=== PATIENT | male | born 1970 | race Caucasian/White ===

== ENCOUNTER → 2020-11-26 | Outpatient (CLI) | payer OTHER ==
[~2020-11-26] MED LIST: ACTOS15 MG PO; ANUSOL HC SUPP1 SUPP PR; ASPIR-LOW81 MG PO; ASPIRIN EC81 MG PO; ATORVASTATIN CA20 MG PO; AZITHROMYCIN500 MG PO; BACLOFEN10 MG PO; COREG 3.125M3.125 MG PO; COREG3.125 MG PO; COZAAR100 MG PO; ECOTRIN81 MG PO; ELIQUIS 5 MG TAB5 MG PO; ELIQUIS5 MG PO; HYDROCHLOROTHIA25 MG PO; IPRAT-ALBUT 0.5-3 ML NEB; JANUVIA100 MG PO; KLONOPIN TAB 00.5 MG PO; LASIX 40 MG TAB40 MG PO; LEVEMIR100 UNIT/1 SQ; LIPITOR40 MG PO; LISINOPRIL10 MG PO; LISINOPRIL40 MG PO; LOPRESSOR 25 MG25 MG PO; LOPRESSOR50 MG PO; METOPROLOL SUCC50 MG PO; MOBIC15 MG PO; NEURONTIN 400400 MG PO; NOVOLOG MI100 UNIT/1 SQ; NOVOLOG100 UNIT/1 SQ; OMNICEF 300 MG300 MG PO; PROAIR HFA8.5 GM INH; TRICOR145 MG PO; VOLTAREN ARTHRI20 GM TOP; ZANTAC 150 MG150 MG PO; ZESTRIL 40 MG T40 MG PO; ZYRTEC10 MG PO
[2020-11-26 07:48] LABS: RED BLOOD COUNT 5.45 M/UL (4.20-5.50); WHITE BLOOD COUNT 8.8 K/UL (4.5-11.0)
[2020-11-26 09:32] LABS: BUN/CREATININE RATIO 21 (0-10)
== END ==
LOC: LAB 07:11
PROVIDERS: Nurse Practitioner Family
DX: I10 Essential (primary) hypertension (principal); E78.5 Hyperlipidemia, unspecified; R00.2 Palpitations; Z12.5 Encounter for screening for malignant neoplasm of prostate
CPT/HCPCS: 36415; 80053; 80061; 81001; 84153; 84439; 84443; 85025

== ENCOUNTER → 2021-01-01 | Outpatient (CLI) | payer OTHER | LOC: HEART 5 09:18 | DX: I42.9 Cardiomyopathy, unspecified (principal); I11.9 Hypertensive heart disease without heart failure; R93.1 Abnormal findings on diagnostic imaging of heart and coronary circulation | CPT/HCPCS: 93306 ==

== ENCOUNTER 2021-01-03 14:46 | Inpatient (IN) | payer OTHER ==
[~2021-01-03] VITALS: Ht 180.3 cm; Wt 93.0 kg
[~2021-01-03 14:46] MED LIST changes: -AZITHROMYCIN500 MG PO; -COREG 3.125M3.125 MG PO; -COREG3.125 MG PO; -COZAAR100 MG PO; -ELIQUIS5 MG PO; -OMNICEF 300 MG300 MG PO; -PROAIR HFA8.5 GM INH; -VOLTAREN ARTHRI20 GM TOP
[2021-01-03 15:44] LABS: HEMOGLOBIN 18.9 gm/dl (14.0-17.5); RED BLOOD COUNT 5.67 M/UL (4.20-5.50); WHITE BLOOD COUNT 13.1 K/UL (4.5-11.0)
[2021-01-04 03:49] LABS: RED BLOOD COUNT 5.42 M/UL (4.20-5.50); WHITE BLOOD COUNT 11.4 K/UL (4.5-11.0)
[2021-01-04] MEDS ORDERED: HYDROCHLOROTHIA25 MG PO (10:07)
[2021-01-04] MEDS ORDERED: PROAIR HFA8.5 GM INH (10:07)
[2021-01-04] MEDS ORDERED: COREG 3.125M3.125 MG PO (10:07)
[2021-01-04] MEDS ORDERED: VOLTAREN ARTHRI20 GM TOP (10:08)
[2021-01-04] MEDS ORDERED: COZAAR100 MG PO (10:08)
== END 2021-01-04 12:27 | disposition left against medical advice (07) | DRG 309 ==
LOC: ER1 14:46 → CDU 16:49
PROVIDERS: Physician Assistant Medical; ADMIT Internal Medicine
DX: I48.92 Unspecified atrial flutter (principal); N17.9 Acute kidney failure, unspecified; I50.22 Chronic systolic (congestive) heart failure; Z20.822 Contact with and (suspected) exposure to COVID-19; I11.0 Hypertensive heart disease with heart failure; F17.210 Nicotine dependence, cigarettes, uncomplicated; J44.9 Chronic obstructive pulmonary disease, unspecified; T50.995A Adverse effect of other drugs, medicaments and biological substances, initial encounter; F12.90 Cannabis use, unspecified, uncomplicated; Z82.49 Family history of ischemic heart disease and other diseases of the circulatory system
CPT/HCPCS: 71045; 80048; 80053; 81001; 82550; 82553; 82570; 83735; 83874; 84156; 84439; 84443; 84484; 85025; 85027; 85610; 85730; 93005; 96374; 99285; J0153; J1650; J7030; U0002

== ENCOUNTER 2021-01-09 09:55 | Observation (INO) | payer OTHER ==
[~2021-01-09] VITALS: Ht 180.3 cm; Wt 95.8 kg
[~2021-01-09 09:55] MED LIST changes: +COREG 3.125M3.125 MG PO; +COZAAR100 MG PO; +PROAIR HFA8.5 GM INH; +VOLTAREN ARTHRI20 GM TOP
[2021-01-09 10:34] LABS: HEMOGLOBIN 18.3 gm/dl (14.0-17.5); RED BLOOD COUNT 5.5 M/UL (4.20-5.50); WHITE BLOOD COUNT 10.3 K/UL (4.5-11.0)
[2021-01-09 10:58] LABS: BUN/CREATININE RATIO 23 (0-10)
[2021-01-10 02:00] LABS: HEMOGLOBIN 16.7 gm/dl (14.0-17.5); RED BLOOD COUNT 5.16 M/UL (4.20-5.50); WHITE BLOOD COUNT 10.7 K/UL (4.5-11.0)
[2021-01-10 02:21] LABS: BUN/CREATININE RATIO 24 (0-10)
[2021-01-10] MEDS ORDERED: COREG 3.125M3.125 MG PO (08:18)
[2021-01-10] MEDS ORDERED: ELIQUIS5 MG PO (11:34)
[2021-01-10] MEDS ORDERED: OMNICEF 300 MG300 MG PO (11:34)
[2021-01-10] MEDS ORDERED: AZITHROMYCIN500 MG PO (11:34)
[2021-01-10] MEDS ORDERED: COREG3.125 MG PO (11:34)
== END 2021-01-10 12:45 | disposition home or self-care (01) ==
LOC: ER1 09:55 → CDU 16:08 → PROG CARE 16:08
PROVIDERS: Emergency Medicine; Physician Assistant; ADMIT Internal Medicine
DX: I48.92 Unspecified atrial flutter (principal); J18.9 Pneumonia, unspecified organism; I11.0 Hypertensive heart disease with heart failure; I50.22 Chronic systolic (congestive) heart failure; I07.1 Rheumatic tricuspid insufficiency; I27.20 Pulmonary hypertension, unspecified; J44.9 Chronic obstructive pulmonary disease, unspecified; F17.210 Nicotine dependence, cigarettes, uncomplicated; F12.10 Cannabis abuse, uncomplicated; Z91.14 Patient's other noncompliance with medication regimen; Z79.82 Long term (current) use of aspirin; Z79.899 Other long term (current) drug therapy; Z20.822 Contact with and (suspected) exposure to COVID-19
CPT/HCPCS: 36415; 71045; 80048; 80053; 82550; 82553; 83605; 83690; 84484; 85025; 87040; 93005; 93312; 93320; 93609; 93620; 96365; 96366; 96368; 96374; 96375; 99152; 99153; 99285; C1730; C1733; C1766; G0378; J0456; J0696; J1200; J1644; J2250; J3010; J7030; J7040; U0002

== ENCOUNTER 2021-12-14 18:38 | Emergency (ER) | payer OTHER ==
[~2021-12-14 18:38] MED LIST changes: +AZITHROMYCIN500 MG PO; +COREG3.125 MG PO; +ELIQUIS5 MG PO; +OMNICEF 300 MG300 MG PO
[2021-12-14 20:14] LABS: HEMOGLOBIN 16.7 gm/dl (14.0-17.5); RED BLOOD COUNT 5.15 M/UL (4.20-5.50); WHITE BLOOD COUNT 5.9 K/UL (4.5-11.0)
[2021-12-14 20:35] LABS: BUN/CREATININE RATIO 16 (0-10)
== END 2021-12-14 22:17 | disposition left against medical advice (07) ==
LOC: ER1 18:38
PROVIDERS: Emergency Medicine
DX: Z53.21 Procedure and treatment not carried out due to patient leaving prior to being seen by health care provider (principal)
CPT/HCPCS: 0240U; 71045; 80053; 82550; 82553; 84484; 85025; 93005

== ENCOUNTER 2021-12-15 01:47 | Observation (INO) | payer OTHER ==
[~2021-12-15] VITALS: Ht 180.3 cm; Wt 93.0 kg
[2021-12-15 04:32] LABS: HEMOGLOBIN 17.6 gm/dl (14.0-17.5); RED BLOOD COUNT 5.47 M/UL (4.20-5.50); WHITE BLOOD COUNT 5.1 K/UL (4.5-11.0)
[2021-12-15 04:51] LABS: BUN/CREATININE RATIO 15 (0-10)
[2021-12-16 06:34] LABS: HEMOGLOBIN 17.8 gm/dl (14.0-17.5); RED BLOOD COUNT 5.61 M/UL (4.20-5.50); WHITE BLOOD COUNT 5.6 K/UL (4.5-11.0)
[2021-12-16] MEDS ORDERED: PROAIR HFA8.5 GM INH (09:30)
[2021-12-16] MEDS ORDERED: COZAAR 50MG TAB50 MG PO (09:30)
[2021-12-16] MEDS ORDERED: DEXAMETHASONE 44 MG PO (09:30)
[2021-12-16] MEDS ORDERED: ASPIRIN EC81 MG PO (09:30)
[2021-12-16 14:35] LABS: BUN/CREATININE RATIO 31 (0-10)
== END 2021-12-16 13:57 | disposition home or self-care (01) ==
LOC: ER1 01:47 → CDU 03:24 → M/S 10:15
PROVIDERS: Internal Medicine; ADMIT Internal Medicine
DX: R07.89 Other chest pain (principal); R79.89 Other specified abnormal findings of blood chemistry; I11.0 Hypertensive heart disease with heart failure; I50.22 Chronic systolic (congestive) heart failure; J44.0 Chronic obstructive pulmonary disease with (acute) lower respiratory infection; U07.1 COVID-19; J12.82 Pneumonia due to coronavirus disease 2019; Z28.310 Unvaccinated for COVID-19; E78.5 Hyperlipidemia, unspecified; I48.92 Unspecified atrial flutter; I45.10 Unspecified right bundle-branch block; F17.210 Nicotine dependence, cigarettes, uncomplicated; Z91.14 Patient's other noncompliance with medication regimen
CPT/HCPCS: ECHO; 36415; 80048; 80053; 80061; 82550; 82553; 83036; 83540; 83550; 83735; 84484; 85025; 85027; 85379; 85652; 86140; 93005; 93306; 94640; 94664; 94760; 96372; 96374; 99285; G0378; J1650; J1940

== ENCOUNTER → 2022-01-27 | Outpatient (CLI) | payer OTHER ==
[~2022-01-27] MED LIST changes: +COZAAR 50MG TAB50 MG PO; +DEXAMETHASONE 44 MG PO
== END ==
LOC: HEART 5 08:27
DX: M79.661 Pain in right lower leg (principal); M79.662 Pain in left lower leg